=== PATIENT | female | born 1980 | race Caucasian/White ===

== ENCOUNTER 2019-12-19 03:33 | Emergency (ER) | payer OTHER ==
--- NOTE | 2019-12-19 03:40 | ED ---
Chest Pain HPI - General Stated Complaint: JONATHAN Time Seen by Provider: 12/19/19 03:35 - History of Present Illness Initial Comments: This patient is a 39-year-old woman who presents by ambulance to be seen about pleuritic type mid back pain. The patient noticed it coming on this evening after she had been riding a [id number]. She denied any injury. She does note that over the preceding 2-3 days she had been having a little bit of fever and a mild cough as well. MD Complaint: other -: hour(s) Onset: during rest Pain Location: other (Mid back) Pain Radiation: none Severity: severe Quality: aching Consistency: constant Improves With: nothing Worsens With: inspiration Other Symptoms: cough, fever Treatments Prior to Arrival: none - Related Data Previous Rx's Medication Instructions Recorded Acetaminophen-Codeine 300-30mg 1 tab PO Q4H PRN #20 tablet 12/19/19 [Tylenol w/codeine #3] Ondansetron Odt [Zofran ODT] 4 mg PO Q8HR PRN #10 tab 12/19/19 Allergies Allergy/AdvReac Type Severity Reaction Status Date / Time No Known Allergies Allergy Verified 12/19/19 03:40 Review of Systems ROS Statement: Those systems with pertinent positive or pertinent negative responses have been documented in the HPI. ROS Other: All systems not noted in ROS Statement are negative. Constitutional: Reports: fever. Denies: chills, weakness ENT: Denies: ear pain, throat pain, congestion Respiratory: Reports: cough. Denies: dyspnea, wheezes, hemoptysis Cardiovascular: Denies: chest pain, palpitations, edema Gastrointestinal: Denies: abdominal pain, vomiting, diarrhea Genitourinary: Denies: dysuria, frequency, hematuria Skin: Denies: rash Neurological: Denies: headache, weakness, numbness EKG Findings - EKG Results: EKG: interpreted by ERMD, sinus rhythm (Rate 94 bpm), normal axis, normal QRS, normal ST/T General Exam General appearance: alert, in no apparent distress Head exam: Present: atraumatic, normocephalic Eye exam: Present: normal appearance. Absent: scleral icterus, conjunctival injection ENT exam: Present: normal oropharynx Neck exam: Present: normal inspection, full ROM. Absent: tenderness, meningismus Respiratory exam: Present: normal lung sounds bilaterally. Absent: respiratory distress, wheezes, rales, rhonchi, stridor, chest wall tenderness, accessory muscle use Cardiovascular Exam: Present: regular rate, normal rhythm, normal heart sounds. Absent: systolic murmur, diastolic murmur, rubs, gallop GI/Abdominal exam: Present: soft. Absent: distended, tenderness, guarding, rebound, rigid, mass Extremities exam: Present: normal inspection, normal capillary refill. Absent: pedal edema, calf tenderness Back exam: Present: normal inspection. Absent: CVA tenderness (R), CVA tenderness (L) Neurological exam: Present: alert Skin exam: Present: warm, dry, intact, normal color. Absent: rash Course Vital Signs 12/19/19 12/19/19 12/19/19 03:36 04:01 05:00 Temperature 97.9 F Pulse Rate 91 89 Respiratory 22 22 20 Rate Blood Pressure 102/74 105/61 O2 Sat by Pulse 97 99 Oximetry 12/19/19 12/19/19 06:00 06:55 Temperature 97.7 F 98.4 F Pulse Rate 98 98 Respiratory 20 20 Rate Blood Pressure 98/57 94/65 O2 Sat by Pulse 97 98 Oximetry Disposition Clinical Impression: Pleuritis Disposition: HOME SELF-CARE Condition: Good Instructions (If sedation given, give patient instructions): Pleurisy (ED) Prescriptions: Acetaminophen-Codeine 300-30mg [Tylenol w/codeine #3] 1 tab PO Q4H PRN #20 tablet PRN Reason: Pain Ondansetron Odt [Zofran ODT] 4 mg PO Q8HR PRN #10 tab PRN Reason: Nausea Is patient prescribed a controlled substance at d/c from ED?: Yes When asked, does pt state using other controlled substances?: No If prescribed controlled substance>3 days was MAPS reviewed?: Prescribed <3 Days If opioid is for acute pain is fill amount 7 days or less?: Yes If Rx opioid, was Start Talking consent form obtained?: Yes Referrals: None,Stated [REFERRING] - 1-2 days
[2019-12-19] MEDS ORDERED: KETOROLAC 30 MG/ML 1 ML VIAL IVP STA (04:06)
--- NOTE | 2019-12-19 04:26 | XR ---
EXAMINATION TYPE: XR chest 2V DATE OF EXAM: 12/19/2019 COMPARISON: NONE HISTORY: Difficulty breathing TECHNIQUE: 2 views FINDINGS: Heart and mediastinum are normal. Lungs are clear. Diaphragm is normal. Bony thorax appears normal. IMPRESSION: Normal chest.
[2019-12-19 04:29] LABS: Basophils # (A) 0.1 k/uL (0-0.2); Basophils % (A) 0 %; Eosinophils # (A) 0.2 k/uL (0-0.7); Eosinophils % (A) 2 %; HCT 42.8 % (34.0-46.0); HGB 14.3 gm/dL (11.4-16.0); Lymphocytes # (A) 4.1 k/uL (1.0-4.8); Lymphocytes % (A) 38 %; MCH 32.1 pg (25.0-35.0); MCHC 33.5 g/dL (31.0-37.0); MCV 95.8 fL (80.0-100.0); Mean Platelet Volume 7.2; Monocytes # (A) 0.5 k/uL (0-1.0); Monocytes % (A) 4 %; Neutrophils # (A) 5.8 k/uL (1.3-7.7); Neutrophils % (A) 54 %; Platelet Count 239 k/uL (150-450); RBC 4.47 m/uL (3.80-5.40); RDW 11.8 % (11.5-15.5); WBC 10.8 k/uL (3.8-10.6)
[2019-12-19 04:34] LABS: Appearance,Urine Clear (Clear); Bilirubin,Urine Negative (Negative); Blood,Urine Negative (Negative); Color,Urine Colorless; Glucose,Urine (UA) Negative (Negative); Ketones,Urine Negative (Negative); Leukocyte Esterase,Urine Negative (Negative); Nitrite,Urine Negative (Negative); PH, Urine 6.5 (5.0-8.0); Protein,Urine Negative (Negative); Specific Gravity,Urine 1.001 (1.001-1.035); Urobilinogen,Urine <2.0 mg/dL (<2.0)
[2019-12-19 04:38] LABS: African American GFR (CKD) >90 (>60 ml/min/1.73 sqM); Albumin 4.7 g/dL (3.5-5.0); Anion Gap 12 mmol/L; Calcium 9.3 mg/dL (8.4-10.2); Carbon Dioxide 17 mmol/L (22-30); Chloride 106 mmol/L (98-107); Glucose 97 mg/dL (74-99); Non-African American GFR(CKD) >90 (>60 ml/min/1.73 sqM); Sodium 135 mmol/L (137-145); Total Bilirubin 0.4 mg/dL (0.2-1.3); Total Protein 7.6 g/dL (6.3-8.2)
[2019-12-19 04:39] LABS: Blood Urea Nitrogen 6 mg/dL (7-17); Potassium 4.3 mmol/L (3.5-5.1)
[2019-12-19 04:40] LABS: ALT 19 U/L (4-34); AST 28 U/L (14-36); Alkaline Phosphatase 63 U/L (38-126)
[2019-12-19 05:12] VITALS: RESP 20
[2019-12-19 06:00] VITALS: PULSE 98
[2019-12-19 06:57] VITALS: BP 94/65; TEMP 98.4
== END 2019-12-19 07:01 | disposition home or self-care (01) ==
LOC: EC 03:33
DX: R09.1 Pleurisy (principal); M54.9 Dorsalgia, unspecified; Z20.828 Contact with and (suspected) exposure to other viral communicable diseases
CPT/HCPCS: 36415; 93005; 85379; 80053; 83605; 84484; 85025; 81003; 81025; 71046; 99285; 96374; U0003; J1885

== ENCOUNTER → 2021-03-15 | Outpatient (CLI) | payer OTHER ==
--- NOTE | 2021-03-15 18:29 | US ---
EXAMINATION TYPE: US pelvis complete transvag DATE OF EXAM: 03/15/2021 COMPARISON: NONE CLINICAL HISTORY: 40-year-old female R10.2 pelvic pain. TECHNIQUE: Transvaginal sonographic images were medically necessary to better assess the anatomy. Date of LMP: Unknown FINDINGS: EXAM MEASUREMENTS: Uterus: 7.9x4.7x5.2 cm Endometrial Stripe: 1.1 cm Right Ovary: 2.5x2.5x2.0 cm Left Ovary: 2.1x1.6x1.4 cm 1. Uterus: Anteverted and otherwise wnl 2. Endometrium: wnl 3. Right Ovary: Heterogeneous round lesion within measuring 1.9x1.9x1.5cm with free fluid just adjac ent and within the posterior cul de sac. Peripheral vascularity is noted. 4. Left Ovary: Dominant follicle measuring 0.9x1.0x1.3cm 5. Bilateral Adnexa: wnl 6. Posterior cul-de-sac: Mild to moderate Free fluid seen. IMPRESSION: 1. A 1.9 cm round heterogeneous lesion within the right ovary. Given the vascularity around the lesio n, a hemorrhagic corpus luteum is possible. Follow-up ultrasound in 6-8 weeks to ensure resolution. 2. Mild to moderate adjacent right adnexal and cul-de-sac free fluid probably physiologic. This can a lso be reassessed at the patient's follow-up. 3. Endometrial stripe measuring 1.1 cm which would correspond to the secretory phase of the menstrual cycle.
== END | disposition home or self-care (01) ==
LOC: RADUSWWP 14:19
PROVIDERS: ATTEND Obstetrics & Gynecology
DX: I73.9 Peripheral vascular disease, unspecified (principal); N83.9 Noninflammatory disorder of ovary, fallopian tube and broad ligament, unspecified
CPT/HCPCS: 76830; 76856

== ENCOUNTER → 2021-09-13 | Outpatient (CLI) | payer OTHER ==
--- NOTE | 2021-09-14 05:32 | US ---
EXAMINATION TYPE: US transvaginal DATE OF EXAM: 09/13/2021 COMPARISON: US pelvis March 15, 2021 CLINICAL HISTORY: N93.8 ABNORMAL UTERINE BLEEDING. Pt states abnormal menses TECHNIQUE: Transvaginal (TV). Transvaginal sonographic images of the pelvis were acquired. Date of LMP: 08/19/2021 EXAM MEASUREMENTS: Uterus: 9.4 x 4.9 x 5.0 cm Endometrial Stripe: 0.7 cm Right Ovary: 2.7 x 2.9 x 2.0 cm Left Ovary: 3.4 x 3.9 x 2.1 cm 1. Uterus: Anteverted Heterogeneous 2. Endometrium: Possible fluid lower portion of endo canal 3. Right Ovary: wnl 4. Left Ovary: two dominant follicles with septations 1)= 1.6 x 1.5 x 1.8 cm 2)= 1.4 x 1.5 x 1.5 c m 5. Bilateral Adnexa: wnl 6. Posterior cul-de-sac: small amount of free fluid Heterogeneous uterus with endometrial stripe is thickened to 7 mm which is within normal limits. Lowe r endometrial canal shows internal anechoic fluid. Tiny amount of free fluid in pelvic cul-de-sac. Both ovaries seen with scattered peripheral follicles and possible tiny thin-walled cysts with thin s epta. No suspicious adnexal masses. IMPRESSION: As above. No suspicious abnormality is seen.
== END | disposition home or self-care (01) ==
LOC: RADUSWWP 16:22
PROVIDERS: ATTEND Obstetrics & Gynecology
DX: N93.8 Other specified abnormal uterine and vaginal bleeding (principal)
CPT/HCPCS: 76830